=== PATIENT | female | born 1985 | race African-American/Black ===

== ENCOUNTER 2018-05-27 00:48 | Emergency (ER) | payer OTHER ==
[~2018-05-27] VITALS: Ht 157.5 cm; Wt 73.9 kg
[2018-05-27] MEDS ORDERED: MELOXICAM7.5 MG PO (01:49)
[2018-05-27] MEDS ORDERED: PEPCID20 MG PO (01:49)
[2018-05-27 01:56] VITALS: BP 138/74
[2018-05-27] MEDS ORDERED: KETOROLAC TROMETHAMINE 60 MG/2 ML VIAL IM ONE (02:00)
== END 2018-05-27 02:20 | disposition home or self-care (01) ==
LOC: FSED 00:48
DX: F41.1 Generalized anxiety disorder (principal); M54.5 Low back pain; G89.29 Other chronic pain; F17.210 Nicotine dependence, cigarettes, uncomplicated
CPT/HCPCS: 93005; 99282; J1885

== ENCOUNTER 2018-06-28 10:36 | Emergency (ER) | payer OTHER ==
[~2018-06-28] VITALS: Ht 157.5 cm; Wt 77.1 kg
[~2018-06-28 10:36] MED LIST: MELOXICAM7.5 MG PO; PEPCID20 MG PO
[2018-06-28] MEDS ORDERED: BUPIVACAINE HCL 0.5% 10ML MPF VIAL INJ ONE (11:40)
[2018-06-28] MEDS ORDERED: BUPIVACAINE HCL 0.5% INJ 30 ML VIAL INJ ONE (11:45)
[2018-06-28] MEDS ORDERED: IBUPROFEN 400 MG TAB ONE (11:58)
[2018-06-28] MEDS ORDERED: CLINDAMYCIN PHOS 600 MG/ 4 ML VIAL IM ONE (12:00)
[2018-06-28] MEDS ORDERED: IBUPROFEN 600 MG TAB ONE (12:02)
[2018-06-28] MEDS ORDERED: IBUPROFEN 600 MG TAB PO ONE (12:30)
== END 2018-06-28 13:08 | disposition home or self-care (01) ==
LOC: ER 10:36
DX: N76.4 Abscess of vulva (principal); F17.210 Nicotine dependence, cigarettes, uncomplicated
CPT/HCPCS: 99282

== ENCOUNTER 2018-09-11 19:25 | Emergency (ER) | payer OTHER ==
[~2018-09-11] VITALS: Ht 157.5 cm; Wt 74.8 kg
[2018-09-11] MEDS ORDERED: CLONIDINE HCL 0.1 MG TAB PO ONE (20:45)
[2018-09-11 21:20] LABS: INFLUENZAE A&B ANTIGEN (RAPID) NEGATIVE (NEGATIVE)
[2018-09-11 21:27] LABS: STREPTOCOCCUS GRP A ANTIGEN NEGATIVE (NEGATIVE)
--- NOTE | 2018-09-11 21:37 | Diagnostic Imaging Report ---
EXAM: CHEST 2 VIEWS, PA and lateral INDICATION: Cough, congestion COMPARISON: None FINDINGS: LINES/TUBES: None LUNGS: No consolidations or edema. PLEURA: No effusions or pneumothorax. HEART AND MEDIASTINUM: Normal size and contour. BONES AND SOFT TISSUES: No acute findings. IMPRESSION: No evidence of pneumonia. Signed by: Dr. Tabitha Crespo M.D. on 09/11/2018 9:34 PM
[2018-09-11] MEDS ORDERED: IBUPROFEN 600 MG TAB PO STA (22:35)
[2018-09-11] MEDS ORDERED: IBUPROFEN 400 MG TAB ONE (22:50)
[2018-09-11 22:52] VITALS: BP 125/87
[2018-09-11] MEDS ORDERED: IBUPROFEN 200 MG TAB ONE (22:52)
== END 2018-09-11 22:53 | disposition home or self-care (01) ==
LOC: ER 19:25
DX: R51 Headache (principal); J00 Acute nasopharyngitis [common cold]; I10 Essential (primary) hypertension; F17.210 Nicotine dependence, cigarettes, uncomplicated
CPT/HCPCS: 71046; 83518; 87070; 87400; 93005; 99283

== ENCOUNTER 2018-11-11 11:29 | Emergency (ER) | payer OTHER ==
[~2018-11-11] VITALS: Ht 157.5 cm; Wt 74.8 kg
--- OUTSIDE RECORDS SUMMARY | 2018-11-11 11:32 | XMS REPORT ---
Author Author [facility] Address Unknown Phone Unavailable Care Team Providers Care Print Journalist Name Role Phone Norbert LOGAN Unavailable Unavailable Problems This patient has no known problems. Allergies, Adverse Reactions, Alerts This patient has no known allergies or adverse reactions. Medications This patient has no known medications. Results Test Description Test Time Test Comments Text Results Atomic Results Result Comments CHEST 2 VIEWS 2018-09-11 21:29:00 [place] [address] Patient Name: GREGORY CARLSON MR #: [id number] : 1985 Age/Sex: 33/F Req #: [id number] [facility] Physician: Ordered by: VAHE LOGAN MD Report #: [id number] Location: ER Room/Bed: Procedure: [id number] DX/CHEST 2 VIEWS Exam Date: 09/11/18 Exam Time: 2054 REPORT STATUS: Signed EXAM: CHEST 2 VIEWS, PA and lateral INDICATION: Cough, co ngestion COMPARISON: None FINDINGS: LINES/TUBES: None LUNGS: No consolidations or edema. PLEURA: No effusions or pneumothorax. HEART AND MEDIASTINUM: Normal size and contour. BONES AND SOFT TISSUES: No acute findings. IMPRESSION: No evidence of pneumonia. Signed by: Dr. Henry Callahan M.D. on 09/11/2018 9:34 PM Dictated By: HENRY CALLAHAN MD 33 Transcribed By: RAJ on 09/11/182133 COPY TO: VAHE LOGAN MD
--- NOTE | 2018-11-11 12:23 | NUR ---
DR. LOGAN IN TRIAGE TO EVAL PT.
[2018-11-11 13:23] VITALS: BP 140/90
== END 2018-11-11 13:54 | disposition home or self-care (01) ==
LOC: ER 11:29
DX: J02.0 Streptococcal pharyngitis (principal)
CPT/HCPCS: 99283

== ENCOUNTER 2019-01-06 18:35 | Emergency (ER) | payer OTHER ==
[~2019-01-06] VITALS: Ht 157.5 cm; Wt 74.8 kg
[2019-01-06] MEDS ORDERED: TETANUS/DIPHTHERIA TOX ADULT 0.5 ML SYR IM ONE (19:30)
--- NOTE | 2019-01-06 20:49 | Diagnostic Imaging Report ---
Hand Complete CPT code: 10464 Indication:Laceration Technique: Three views of the right hand obtained Comparison: None. Findings: Distal radius and ulna appear intact. Carpal bones appear generally well aligned. The digits are intact and normally aligned. There are multiple punctate foci over the third and fourth digits on the PA image. This is not confirmed on other images and likely due to dust on the cassette. IMPRESSION: No evidence for displaced fracture or current dislocation of the hand. No conclusive evidence of radiopaque foreign body given the presence of artifact mentioned above. Signed by: Dr. Nadeem Knight MD on 01/06/2019 8:46 PM
--- NOTE | 2019-01-06 20:53 | Diagnostic Imaging Report ---
Femur right CPT code: 78779 Indication: Laceration Technique: AP and lateral views of right femur obtained Comparison: None Findings: No acute fracture or dislocation. The osseous structures are well-developed and mineralized. No evidence of hip or knee effusion. A round collection of punctate calcifications in in the soft tissues of the proximal thigh measures 11 mm. This is unlikely to represent glass. IMPRESSION: 1. No acute fracture or dislocation. 2. Cluster of calcifications as described above. Please correlate with clinical exam findings. Signed by: Dr. Nadeem Knight MD on 01/06/2019 8:49 PM
--- NOTE | 2019-01-06 21:02 | Diagnostic Imaging Report ---
Left complete knee. CPT CODE: 22973. INDICATION: Laceration COMPARISON: None FINDINGS: No evidence of acute fracture or dislocation. The visualized joint spaces of the knee are preserved. No joint effusion. No radiopaque foreign body in the soft tissues. IMPRESSION: No osseous injury or joint effusion. No radiopaque foreign bodies. Signed by: Dr. Nadeem Knight MD on 01/06/2019 8:58 PM
[2019-01-06] MEDS ORDERED: ACETAMINOPHEN/CODEINE 300MG - 30MG TAB PO NR (22:00)
--- NOTE | 2019-01-06 22:20 | NUR ---
NO ADVERSE REACTION TO MEDICATIONS GIVEN, PT DEPARTED TO HOME
[2019-01-07 04:13] VITALS: BP 144/100
== END 2019-01-06 22:20 | disposition home or self-care (01) ==
LOC: ER 18:35
DX: S61.011A Laceration without foreign body of right thumb without damage to nail, initial encounter (principal); S61.302A Unspecified open wound of right middle finger with damage to nail, initial encounter; S71.111A Laceration without foreign body, right thigh, initial encounter; W25.XXXA Contact with sharp glass, initial encounter; Y92.008 Other place in unspecified non-institutional (private) residence as the place of occurrence of the external cause; I10 Essential (primary) hypertension; F17.210 Nicotine dependence, cigarettes, uncomplicated
CPT/HCPCS: 90471; 90714

== ENCOUNTER 2019-05-07 11:51 | Emergency (ER) | payer OTHER ==
[~2019-05-07] VITALS: Ht 157.5 cm; Wt 74.8 kg
--- NOTE | 2019-05-07 13:42 | Diagnostic Imaging Report ---
Right shoulder, 2 views. History: Right shoulder pain and trauma. Findings: The soft tissues are normal. Bone mineralization is normal. There is no evidence of fracture, AC separation, or dislocation. There are no lytic or sclerotic lesions. The joint spaces are within normal limits. IMPRESSION: Normal right shoulder. Signed by: Liban Garcia on 05/07/2019 1:39 PM
== END 2019-05-07 15:11 | disposition home or self-care (01) ==
LOC: ER 11:51
DX: S43.401A Unspecified sprain of right shoulder joint, initial encounter (principal); M25.511 Pain in right shoulder; Y04.0XXA Assault by unarmed brawl or fight, initial encounter; Y92.008 Other place in unspecified non-institutional (private) residence as the place of occurrence of the external cause; I10 Essential (primary) hypertension
CPT/HCPCS: 99282

== ENCOUNTER 2020-04-21 18:17 | Emergency (ER) | payer OTHER ==
[~2020-04-21] VITALS: Ht 157.5 cm; Wt 74.8 kg
--- NOTE | 2020-04-21 19:17 | Emergency Department Note ---
History of Present Illnes History of Present Illness Chief Complaint: General Medicine Complaints History of Present Illness This is a 35 year old female presents with c/o right upper dental pain for 1 week. states has a broken tooth there for past 6 months. states intermittently has pain . Historian: Patient Arrival Mode: Car Onset (how long ago): day(s) (7) Location: right upper rear molar Quality: pain Radiation: Reports non-radiation Severity: severe Duration (how long): day(s) (7) Timing of current episode: constant Progression: unchanged Chronicity: recurrent Context: Denies recent illness, Denies recent surgery Relieving factors: none Exacerbating factors: other (eating) Associated symptoms: Reports denies other symptoms Past Medical/Family History Physician Review I have reviewed the patient's past medical and family history. Any updates have been documented here. Past Medical History Recent Fever: No Clinical Suspicion of Infectio: Yes New/Unexplained Change in Ment: No Past Medical History: Hypertension, Anxiety Other Medical History: JOINT PAIN Past Surgical History: Tubal Ligation Social History Smoking Cessation: Current some day smoker Alcohol Use: Occasional Any Illegal Drug Use: No Physically hurt or threatened: No Family History Family history of heart diseas: No Other Last Tetanus: ood Review of Systems Review of Systems Constitutional: Reports no symptoms EENTM: Reports as per HPI Cardiovascular: Reports no symptoms Respiratory: Reports no symptoms Gastrointestinal: Reports no symptoms Genitourinary: Reports no symptoms Musculoskeletal: Reports no symptoms Integumentary: Reports no symptoms Neurological: Reports no symptoms Psychological: Reports no symptoms Endocrine: Reports no symptoms Hematological/Lymphatic: Reports no symptoms Physical Exam Related Data Allergies: Coded Allergies: No Known Allergies (Unverified , 11/11/18) Triage Vital Signs Vital Signs Date Time Temp Pulse Resp B/P (MAP) Pulse Ox O2 Delivery O2 Flow Rate FiO2 04/21/20 18:46 99.3 113 18 148/105 100 Room Air Vital signs reviewed: Yes Physical Exam CONSTITUTIONAL Constitutional: Present well-developed, Present well-nourished HENT HENT: Present normocephalic, Present atraumatic, Present oropharynx clear/moist, Present nose normal, Present other (broken right upper rear molar with mild surrounding swelling and erythema) HENT L/R: Present left ext ear normal, Present right ext ear normal EYES Eyes: Reports PERRL, Reports conjunctivae normal NECK Neck: Present ROM normal PULMONARY Pulmonary: Present effort normal, Present breath sounds normal CARDIOVASCULAR Cardiovascular: Present regular rhythm, Present heart sounds normal, Present capillary refill normal, Present normal rate GASTROINTESTINAL Abdominal: Present soft, Present nontender, Present bowel sounds normal GENITOURINARY Genitourinary: Present exam deferred SKIN Skin: Present warm, Present dry MUSCULOSKELETAL Musculoskeletal: Present ROM normal NEUROLOGICAL Neurological: Present alert, Present oriented x 3, Present no gross motor or sensory deficits PSYCHOLOGICAL Psychological: Present mood/affect normal, Present judgement normal Assessment & Plan Medical Decision Making [facility] pt with broken tooth and dental abscess discharged with following prescriptions dolobid 500 mg po bid #14 Pen Vee k 500 mg 1po q 6 hours times 14 days pt instructed to follow up with a dentist Assessment & Plan Final Impression: (1) Dental abscess (2) Pain, dental Depart Disposition: HOME, SELF-CARE Last Vital Signs Date Time Temp Pulse Resp B/P (MAP) Pulse Ox O2 Delivery O2 Flow Rate FiO2 04/21/20 18:46 99.3 113 18 148/105 100 Room Air Home Meds Active Scripts Famotidine (PEPCID) 20 Mg Tablet, 20 MG PO BID, #60 TAB 0 Refills Take while on meloxicam for stomach protection. Prov:JL SARKAR MD 05/27/18 Meloxicam (MELOXICAM) 7.5 Mg Tablet, 15 MG PO DAILY, #30 TAB 0 Refills Prov:JL SARKAR MD 05/27/18 CHANG FAGAN MD Apr 21, 2020 19:17
== END 2020-04-21 19:20 | disposition home or self-care (01) ==
LOC: ER 19:16
DX: K08.89 Other specified disorders of teeth and supporting structures (principal); K04.7 Periapical abscess without sinus; I10 Essential (primary) hypertension; F41.9 Anxiety disorder, unspecified
CPT/HCPCS: 99282